=== PATIENT | male | born 1955 | race African-American/Black ===

== ENCOUNTER 2020-06-17 06:01 | Day surgery (SDC) | payer MEDICARE, OTHER ==
[2020-06-14 09:41] LABS: BASOPHILS % (AUTO) 1.4 % (0.0-2.0); EOSINOPHILS % (AUTO) 9.4 % (0.0-3.0); HEMATOCRIT 28.7 % (42.0-52.0); HEMOGLOBIN 9.6 G/DL (14.2-18.0); LYMPHOCYTES % (AUTO) 33.8 % (20.0-45.0); MEAN CORPUSCULAR VOLUME 89 FL (80-99); MONOCYTES % (AUTO) 16.5 % (1.0-10.0); NEUTROPHILS % (AUTO) 38.9 % (45.0-75.0); PLATELET COUNT 160 K/UL (150-450); RED BLOOD COUNT 3.24 M/UL (4.70-6.10); RED CELL DISTRIBUTION WIDTH 14.1 % (11.6-14.8); WHITE BLOOD COUNT 3.9 K/UL (4.8-10.8)
[2020-06-14 10:02] LABS: CALCIUM 8.6 MG/DL (8.5-10.1); CREATININE 9.2 MG/DL (0.55-1.30); POTASSIUM 4.4 MMOL/L (3.5-5.1)
--- NOTE | 2020-06-14 16:29 | Opthalmology H&P ---
Ophthalmology H&P H&P Chief Complaint: decreased vision in left eye HPI Vision Affects Ability to: read, focus/use eyes together, manage personal affairs Past Ocular History: glaucoma HPI Narrative Blurry vision Exam Visual Acuity: OD 20/30 OS Counting fingers Tension: OD 14 OS 14 Eye Exam: normal OU: external exam, palpebral fissure-width, marginal reflex distance, levator function, corneas, anterior chambers, fundus exam; findings: lens - NS Cataracts OOS Assessment/Plan Treatment Plan: cataract extraction w/ lens implant Goals of Treatment: improvement of vision, enhance quality of life Attestation Attestation The risks and benefits of the surgery as well as alternative procedures were explained to the patient in detail. Patrice Hill MD Jun 14, 2020 16:29
--- NOTE | 2020-06-14 16:30 | Pre-Procedure Note/Attestation ---
Pre-Procedure Note/Attestation Complete Prior to Procedure Planned Procedure: left Procedure Narrative: Cataract extraction with IOL implant left eye Indications for Procedure Pre-Operative Diagnosis: Nuclear sclerotic cataract left eye Attestation I attest that I discussed the nature of the procedure; its benefits; risks and complications; and alternatives (and the risks and benefits of such alternatives), prior to the procedure, with the patient (or the patient's legal data entry representative). I attest that, if there was a reasonable possibility of needing a blood transfusion, the patient (or the patient's legal data entry representative) was given the [facility] standardized written summary, pursuant to the [employer] [place] Blood Safety Act ([place] Health and Safety Code # 1645, as amended). I attest that I re-evaluated the patient just prior to the surgery and that there has been no change in the patient's H&P, except as documented below: Patrice Hill MD Jun 14, 2020 16:30
[~2020-06-17] VITALS: Ht 175.3 cm; Wt 72.6 kg
[2020-06-17] VITALS (9 sets, daily range): BP systolic 162–209; BP diastolic 82–101
[2020-06-17] MEDS ORDERED: Tobramycin Op Soln 0.3% 5ml LEFT EYE ONE (07:00)
[2020-06-17] MEDS ORDERED: Tetracaine 0.5% Opth 4ml Soln LEFT EYE ONE (07:00)
[2020-06-17] MEDS ORDERED: prednisoLONE acetate 1% Opth Susp 1ml ONE (07:00)
[2020-06-17] MEDS ORDERED: Proparacaine 0.5% Opth Soln 15ml LEFT EYE ONE (07:00)
[2020-06-17] MEDS ORDERED: Akten 3.5% 1ml Btl LEFT EYE ONE (07:00)
[2020-06-17] MEDS ORDERED: Maxitrol Opth Oint 3.5gm ONE (07:00)
[2020-06-17] MEDS ORDERED: Pilocarpine 1% Opth 15ml Soln ONE (07:00)
[2020-06-17] MEDS: Phenylephrine 10% Opth Soln 5ml LEFT EYE SCH ×3 (08:06→08:20)
[2020-06-17] MEDS: Tropicamide 1% Opth 15ml Soln LEFT EYE SCH ×3 (08:06→08:20)
[2020-06-17] MEDS ORDERED: ASPIRIN81 MG ORAL (08:11)
[2020-06-17] MEDS ORDERED: AMLODIPINE BESY10 MG ORAL (08:11)
[2020-06-17] MEDS ORDERED: LISINOPRIL40 MG ORAL (08:11)
[2020-06-17] MEDS ORDERED: RENVELA0.8 GM ORAL (08:11)
[2020-06-17] MEDS ORDERED: ATORVASTATIN CA40 MG ORAL (08:11)
[2020-06-17] MEDS ORDERED: Midazolam 2mg/2ml Inj ONE (09:23)
[2020-06-17] MEDS ORDERED: fentaNYL 100 mcg/2 mL IV ONE ×2 (09:23→11:11)
[2020-06-17] MEDS ORDERED: Midazolam 2mg/2ml Inj IVP PRN (09:45)
[2020-06-17] MEDS ORDERED: DiphenhydrAMINE 50mg/ml Inj IVP PRN (09:45)
[2020-06-17] MEDS ORDERED: LR 1000ml 1,000 ML IVLG SCH (09:45)
[2020-06-17] MEDS ORDERED: fentaNYL 100 mcg/2 mL IV PRN (09:45)
[2020-06-17] MEDS ORDERED: Labetalol 5mg/ml 20ml vial IV PRN (09:45)
[2020-06-17] MEDS ORDERED: Atropine Inj 1mg/10ml Syr IVP PRN (09:45)
--- NOTE | 2020-06-17 10:17 | Anethesia Preoperative Eval ---
Anesthesia Pre-op PMH/ROS General Date of Evaluation: Jun 17, 2020 Time of Evaluation: 09:22 Anesthesiologist: martina ASA Score: ASA 4 Mallampati Score Class I : Soft palate, uvula, fauces, pillars visible Class II: Soft palate, uvula, fauces visible Class III: Soft palate, base of uvula visible Class IV: Only hard plate visible Mallampati Classification: Class II Surgeon: franc Diagnosis: nuclear sclerotic cataract left eye Surgical Procedure: cataract extraction w/iol left eye Anesthesia History: none Allergies: Coded Allergies: No Known Allergies (Unverified , 06/17/20) Past Medical History Cardiovascular: Reports: HTN Gastrointestinal/Genitourinary: Reports: ESRD Endocrine: Reports: DM HEENT: Reports: cataract (L), cataract (R) Anesthesia Pre-op Phys. Exam Physician Exam Last Vital Signs Date Time Temp Pulse Resp B/P (MAP) Pulse Ox O2 Delivery O2 Flow Rate FiO2 06/17/20 08:08 Room Air 06/17/20 08:04 97.8 58 18 179/83 99 Anesthesia Pre-op A/P Labs Chemistry Test 06/17/20 07:05 06/17/20 07:20 Potassium Level 4.7 MMOL/L (3.5-5.1) POC Whole Blood Glucose Pending Alissa Turner MD Jun 17, 2020 10:17
[2020-06-17] MEDS ORDERED: NS Irrig 1000ml ONE (11:00)
[2020-06-17] MEDS ORDERED: Sterile Water Irrig 1000ml IRRIG ONE (11:00)
[2020-06-17] MEDS ORDERED: Glycopyrrolate 0.2mg/ml 1ml Vial ONE (11:24)
[2020-06-17] MEDS ORDERED: ePHEDrine 50mg/ml Inj ONE (11:24)
--- NOTE | 2020-06-17 11:49 | Immediate Post-Op Evaluation ---
Immediate Post-Op Evalulation Immediate Post-Op Evalulation Procedure: cataract extraction left eye Date of Evaluation: Jun 17, 2020 Time of Evaluation: 11:49 IV Fluids: 200 Blood Pressure Systolic: 199 Blood Pressure Diastolic: 90 Pulse Rate: 88 Respiratory Rate: 14 O2 Sat by Pulse Oximetry: 99 Temperature (Fahrenheit): 97.8 Nausea: No Vomiting: No Complications none Patient Status: awake, reacts, patent Hydration Status: adequate Drug: none MallyriKim freeman CRNA Jun 17, 2020 11:49
--- NOTE | 2020-06-17 11:51 | Anethesia Preoperative Eval ---
Anesthesia Pre-op PMH/ROS General Date of Evaluation: Jun 17, 2020 Time of Evaluation: 10:45 Anesthesiologist: bethel ASA Score: ASA 4 Mallampati Score Class I : Soft palate, uvula, fauces, pillars visible Class II: Soft palate, uvula, fauces visible Class III: Soft palate, base of uvula visible Class IV: Only hard plate visible Mallampati Classification: Class II Surgeon: franc Diagnosis: cataract Surgical Procedure: cataract extraction Anesthesia History: none Family History: no anesthesia problems Allergies: Coded Allergies: No Known Allergies (Unverified , 06/17/20) Medications: see eMAR Patient NPO?: Yes NPO Date: Jun 17, 2020 NPO Time: 00:01 Past Medical History Cardiovascular: Reports: HTN, CAD Pulmonary: Denies: asthma, COPD, ESTRELLA, other Gastrointestinal/Genitourinary: Reports: GERD, ESRD Neurologic/Psychiatric: Denies: dementia, CVA, depression/anxiety, TIA, other Endocrine: Reports: DM; Denies: hypothyroidism, steroids, other HEENT: Denies: cataract (L), cataract (R), glaucoma, [place] (L), [place] (R), other Hematology/Immune: Denies: anemia, DVT, bleeding disorder, other Musculoskeletal/Integumentary: Denies: OA, RA, DJD, DDD, edema, other PSxH Narrative: cataract extraction Anesthesia Pre-op Phys. Exam Physician Exam Last Vital Signs Date Time Temp Pulse Resp B/P (MAP) Pulse Ox O2 Delivery O2 Flow Rate FiO2 06/17/20 08:08 Room Air 06/17/20 08:04 97.8 58 18 179/83 99 Constitutional: NAD Neurologic: CN 2-12 intact Cardiovascular: RRR Respiratory: CTA Gastrointestinal: S/NT/ND Airway Exam Mallampati Classification 2 Mallampati Score: Class II MO: full Dentures: no upper, no lower Anesthesia Pre-op A/P Labs Chemistry Test 06/17/20 07:05 06/17/20 07:20 Potassium Level 4.7 MMOL/L (3.5-5.1) POC Whole Blood Glucose Pending Studies Pre-op Studies: EKG - sr Risk Assessment & Plan Assessment: denies changes in health Plan: general/ hard IV stick/ Inhalation induction Status Change Before Surgery: No Pre-Antibiotics Drug: none Tarrillion,Kim Kerr [employer]IE[employer] TE[employer]ICER Jun 17, 2020 11:51
[2020-06-17] MEDS ORDERED: Sodium Hyaluronate 10 mg/ml 0.85ml ONE (12:48)
[2020-06-17] MEDS ORDERED: BSS 15ml BTL ONE (12:48)
[2020-06-17] MEDS ORDERED: Povidone-Iodine 5% opth solution ONE (12:48)
[2020-06-17] MEDS ORDERED: BSS 500ml btl ONE (12:48)
[2020-06-17] MEDS ORDERED: Cyclopentolate 2% Opth Sol LEFT EYE ONE (17:45)
[2020-06-17] MEDS ORDERED: Diclofenac Sod 0.1% Op Soln LEFT EYE ONE (18:00)
[2020-06-17] MEDS ORDERED: Tobradex Opth Oint 3.5gm LEFT EYE ONE (18:00)
--- NOTE | 2020-06-18 10:04 | Brief Operative Note ---
Immediate Post Operative Note Operative Note Chief Complaint: Blurry vision Pre-op Diagnosis: Nuclear sclerotic cataract left eye Procedure: Cataract extraction with IOL implant left eye Post-op Diagnosis: Pseudo OS Findings: consistent w/pre-op dx studies Surgeon: Patrice Hill MD Anesthesiologist: Kim Carbajal CRNA Anesthesia: general Specimen: none Complications: none Condition: stable Fluids: LR Estimated Blood Loss: none Drains: none Implant(s) used?: Yes - IOL-OS Patrice Hill MD Jun 18, 2020 10:04
--- NOTE | 2020-06-18 10:46 | Operative Note - PDOC ---
Operative Note Operative Note Date of Operation/Procedure: Jun 17, 2020 Chief Complaint: Blurry vision Pre-op Diagnosis: Nuclear sclerotic cataract left eye Procedure: Cataract extraction with IOL implant left eye Post-op Diagnosis: Pseudo OS Operative Findings: consistent w/pre-op dx studies Surgeon: Patrice Hill MD Anesthesiologist: Kim Carbajal CRNA Anesthesia: general Specimen: none Complications: none Condition: stable Fluids: LR Estimated Blood Loss: none Drains: none Implant(s) used?: Yes - IOL-OS Indications for Procedure Nuclear sclerotic cataract left eye Description of Procedure This patient has been complaining visually significant cataract in the left eye with the best corrected visual acuity of counting fingers at a four foot distance. The patient complains of difficulties with glare in performing activities of daily living and wants to manage personal affairs with comfort and accuracy and see well enough to move with safety at home and outdoors. The risks, benefits and alternatives of the procedure were discussed with the patient in the office prior to scheduling surgery. All questions from the patient were answered after the surgical procedure was explained in detail. The risks of the procedure as explained to the patient include, but are not limited to, pain, infection, bleeding, loss of vision, retinal detachment, need for further surgery, loss of lens nucleus, double vision, etc. Alternative procedures were discussed which include, to do nothing or seek a second opinion. Informed consent for this procedure was obtained from the patient. The patient was referred to a primary care physician for a cardiopulmonary clearance prior to surgery, after proper evaluation was done patient was properly scheduled for outpatient surgery. The patient was brought to the operating room where the anesthesiologist established I.V. lines and cardiac monitoring leads. Mild intravenous sedation was administered. The patient was then prepared with a 5% solution of povidone-iodine to the conjunctival fornix and lashes, and a 5% solution of povidone-iodine to the lids and periorbital skin. The patient was then draped in the usual sterile fashion. A lid speculum was then placed in the operative eye. A keratome blade was then used to create a biplanar incision into the anterior chamber. Viscoelastics was then instilled into the anterior chamber. A capsulorrhexis was then fashioned with an utrata forceps. The lens nucleus was hydrodissected and hydrodelineated with a G 27 Cannula. Paracentesis incision was made at 3 o'clock with sharp blade. The phacoemulsification unit, after being properly adjusted and tested, was then used to emulsify the nucleus followed by aspiration and irrigation of residual cortical material. Healon was then instilled into the anterior chamber. The corneal wound was then enlarged to the size of the optic with the rob keratome blade. The intraocular lens was then inspected for right power and size and thought to be satisfactory. Then the lens was gently placed in the capsular bag. Positioning within the capsular bag was confirmed by direct visualization. Optic centration was accomplished with a Sinskey hook. Viscoelastics was removed from the anterior chamber using the irrigation and aspiration unit. The corneal wound was then tested for leaks and none were found. The lid speculum were then removed. Sponge and needle counts were correct. An eye patch and shield were placed over the operative eye. The patient was taken to the recovery room in stable condition. There were no complications. The patient tolerated the procedure well. The patient was then transferred to the ambulatory surgery unit in stable and satisfactory condition, was given detailed written instructions and asked to follow up in the office the next day. Patrice Hill MD Jun 18, 2020 10:46
--- NOTE | 2020-06-18 11:19 | 48 Hour Post Anesthesia Eval ---
Post Anesthesia Evaluation Procedure: cataract extraction left eye Date of Evaluation: Jun 18, 2020 Airway: patent Nausea: No Vomiting: No Hydration Status: adequate Mental Status/LOC: patient returned to baseline Post-Anesthesia Complications: 0 Follow-up care needed: N/A Una Reyez MD Jun 18, 2020 11:19
--- NOTE | 2020-06-18 16:26 | Cardiology Report ---
APPROVED REPORT EKG Measurement Heart [id number] <Conclusion> Sinus bradycardia with 1st degree AV block Nonspecific T wave abnormality Abnormal ECG
== END 2020-06-17 13:30 | disposition home or self-care (01) ==
LOC: SUR 06:01
DX: H25.12 Age-related nuclear cataract, left eye (principal); R00.1 Bradycardia, unspecified; I44.0 Atrioventricular block, first degree; I25.10 Atherosclerotic heart disease of native coronary artery without angina pectoris; I12.0 Hypertensive chronic kidney disease with stage 5 chronic kidney disease or end stage renal disease; E11.22 Type 2 diabetes mellitus with diabetic chronic kidney disease; N18.6 End stage renal disease
CPT/HCPCS: 36415; 66984; 80048; 82962; 84132; 85025; 93005; 94003; J1100; J3010; J3370; J7030; U0002; V2632; 94150; J2250